=== PATIENT | male | born 1960 | race Hispanic/Latino ===

== ENCOUNTER 2020-12-13 08:35 | Day surgery (SDC) | payer OTHER ==
[2020-11-24 11:00] LABS: INR 1.01 (0.85-1.15)
[2020-11-24 11:02] LABS: PARTIAL THROMBOPLASTIN TIME 29.1 SEC (26.3-35.5)
[~2020-12-13 08:35] MED LIST: ISOVUE-M 200 20 ML VIAL IT ONE
[2020-12-13] MEDS ORDERED: ISOVUE-M 200 20 ML VIAL IT ONE (08:44)
== END 2020-12-13 12:30 | disposition home or self-care (01) ==
LOC: DAH 08:35
PROVIDERS: ATTEND Family Medicine
DX: M54.16 Radiculopathy, lumbar region (principal); M48.061 Spinal stenosis, lumbar region without neurogenic claudication; M43.16 Spondylolisthesis, lumbar region; G47.33 Obstructive sleep apnea (adult) (pediatric); M79.7 Fibromyalgia; I10 Essential (primary) hypertension; E78.5 Hyperlipidemia, unspecified; K21.9 Gastro-esophageal reflux disease without esophagitis; F41.9 Anxiety disorder, unspecified; F33.9 Major depressive disorder, recurrent, unspecified; Z79.01 Long term (current) use of anticoagulants
CPT/HCPCS: 36415; 62304; 72132; 85610; 85730; Q9966

== ENCOUNTER 2021-07-25 06:07 | Day surgery (SDC) | payer OTHER ==
[2021-07-24 11:03] LABS: BASOPHILS % (AUTO) 0.3 % (0.0-5.0); HEMATOCRIT 41.1 % (42-54); LYMPHOCYTES % (AUTO) 38.8 % (21.0-51.0); MEAN CORPUSCULAR HEMOGLOBIN 30.4 pg (27.0-33.0); MEAN CORPUSCULAR HGB CONC 34.1 g/dL (32.0-36.0); MEAN CORPUSCULAR VOLUME 89.2 fL (79-99); MONOCYTES % (AUTO) 9.7 % (3.0-13.0); PLATELET COUNT (AUTO) 212 K/uL (130-400); RED BLOOD CELL COUNT(AUTO) 4.61 MIL/uL (4.50-6.20); RED CELL DISTRIBUTION WIDTH 12.6 % (11.0-15.5); WHITE BLOOD COUNT (AUTO) 6.1 K/uL (4.8-10.8)
[2021-07-24 11:09] LABS: CREATININE 0.9 mg/dL (0.5-1.5); POTASSIUM 4.2 mmol/L (3.5-5.1)
[2021-07-24 11:49] VITALS: BP 187/92
[2021-07-25] VITALS (17 sets, daily range): BP systolic 111–141; BP diastolic 53–90
[~2021-07-25] VITALS: Ht 172.7 cm; Wt 94.5 kg
[2021-07-25] MEDS: CEFAZOLIN SODIUM 1 GM VIAL IVP SCH ×2 (06:00→08:32)
[~2021-07-25 06:07] MED LIST changes: -ISOVUE-M 200 20 ML VIAL IT ONE; +LISI20TA24 PO; +OMEG-148 PO; +TRAMADOL PO
[2021-07-25] MEDS ORDERED: LACTATED RINGERS 1000ML 1,000 ML IV ONE (07:03)
[2021-07-25] MEDS ORDERED: FENTANYL CITRATE PF 50 MCG/1 ML 2ML VIAL ONE (08:17)
[2021-07-25] MEDS ORDERED: MIDAZOLAM HCL 1 MG/ML 2ML VIAL ONE (08:17)
[2021-07-25] MEDS ORDERED: GLYCOPYRROLATE 1 MG/5 ML SYRINGE ONE (08:17)
[2021-07-25] MEDS ORDERED: ONDANSETRON 4MG INJ ONE (08:17)
[2021-07-25] MEDS ORDERED: SUCCINYLCHOLINE CHLORIDE 20 MG/ML 10 ML VIAL ONE (08:17)
[2021-07-25] MEDS ORDERED: LIDOCAINE PF 100MG/5ML (2%) SYRINGE 5ML ONE (08:17)
[2021-07-25] MEDS ORDERED: ROCURONIUM 10MG/1ML SYR 10 MG/ML ML ONE (08:17)
[2021-07-25] MEDS ORDERED: NEOSTIGMINE 5MG/5ML SYR IV ONE (08:17)
[2021-07-25] MEDS ORDERED: PROPOFOL 10 MG/ML 20ML VIAL IV ONE (08:17)
[2021-07-25] MEDS ORDERED: DEXAMETHASONE SOD PHOSPHATE 10MG/ML 1ML VIAL ONE (08:17)
[2021-07-25] MEDS ORDERED: PHENYLEPHRINE HCL 10 MG/ML 1ML VIAL IV ONE (08:50)
[2021-07-25] MEDS ORDERED: MEPERIDINE-PF 25 MG/ML SYG ONE ×2 (09:01→09:58)
[2021-07-25] MEDS ORDERED: CEPH500B PO (09:30)
[2021-07-25] MEDS ORDERED: ACET1TAB25 PO (09:30)
[2021-07-25] MEDS ORDERED: KETOROLAC 30MG VIAL (30MG/ML) ONE (09:59)
== END 2021-07-25 11:00 | disposition home or self-care (01) ==
LOC: DAH 06:07
PROVIDERS: ATTEND Orthopaedic Surgery
DX: M23.321 Other meniscus derangements, posterior horn of medial meniscus, right knee (principal); Z20.822 Contact with and (suspected) exposure to COVID-19; M94.261 Chondromalacia, right knee; G47.33 Obstructive sleep apnea (adult) (pediatric); M79.7 Fibromyalgia; I10 Essential (primary) hypertension; E78.5 Hyperlipidemia, unspecified; K21.9 Gastro-esophageal reflux disease without esophagitis; F41.9 Anxiety disorder, unspecified; F32.9 Major depressive disorder, single episode, unspecified; Z79.01 Long term (current) use of anticoagulants
CPT/HCPCS: 29881; 36415; 80048; 85025; 87635; A4213; A4215; A4221; A4222; A4223; A4649; A4663; A4930; A5120; A6223; C9803; J0330; J0690; J1100; J1885; J2001; J2175 ×2; J2250; J2370; J2405; J2704; J2710; J3010; J3490; J7120

== ENCOUNTER 2024-03-17 05:36 | Observation (INO) | payer OTHER ==
[2024-03-11 13:06] LABS: BASOPHILS # (AUTO) 0.03 K/uL (0.00-0.20); BASOPHILS % (AUTO) 0.5 % (0.0-5.0); EOSINOPHILS # (AUTO) 0.12 K/uL (0.00-0.70); EOSINOPHILS % (AUTO) 2.2 % (0.0-8.0); HEMATOCRIT 44.6 % (42-54); IMMATURE GRANULOCYTE ABSOLUTE 0.01 K/uL (0-1); LYMPHOCYTES # (AUTO) 1.8 K/uL (1.0-4.8); LYMPHOCYTES % (AUTO) 32.7 % (21.0-51.0); MEAN CORPUSCULAR HEMOGLOBIN 30.7 pg (27.0-33.0); MEAN CORPUSCULAR HGB CONC 34.3 g/dL (32.0-36.0); MEAN CORPUSCULAR VOLUME 89.4 fL (79-99); MONOCYTES # (AUTO) 0.4 K/uL (0.1-1.0); MONOCYTES % (AUTO) 7.8 % (3.0-13.0); NEUTROPHILS # (AUTO) 3.1 K/uL (1.8-7.7); NEUTROPHILS % (AUTO) 56.6 % (40.0-77.0); PLATELET COUNT (AUTO) 233 K/uL (130-400); RED BLOOD CELL COUNT(AUTO) 4.99 MIL/uL (4.50-6.20); RED CELL DISTRIBUTION WIDTH 12.6 % (11.0-15.5); WHITE BLOOD COUNT (AUTO) 5.5 K/uL (4.8-10.8)
[2024-03-11 13:24] LABS: APPEARANCE,URINE CLEAR (CLEAR); BILIRUBIN,URINE NEGATIVE (NEGATIVE); COLOR,URINE LIGHT-YELLOW (YELLOW); GLUCOSE, URINE (UA) NEGATIVE (NEGATIVE); KETONES,URINE NEGATIVE (NEGATIVE); LEUKOCYTE ESTERASE ,URINE NEGATIVE Leu/uL (NEGATIVE); NITRATE,URINE NEGATIVE (NEGATIVE); OCCULT BLOOD,URINE NEGATIVE (NEGATIVE); PH,URINE 5.5 (5.0-8.0); PROTEIN,URINE NEGATIVE (NEGATIVE); UROBILINOGEN,URINE 0.2 mg/dL (0.2-1.0)
[2024-03-11 13:25] LABS: ADD UA MICROSCOPIC NO
[2024-03-11 13:26] VITALS: BP 178/89; PULSE 62; RESP 18; TEMP 98.5
[~2024-03-17] VITALS: Ht 172.7 cm; Wt 98.4 kg
[2024-03-17] VITALS (29 sets, daily range): BP systolic 110–163; BP diastolic 58–92; PULSE 64–98; RESP 10–19; TEMP 97.4–98.9; O2SAT 93–96
[~2024-03-17 05:36] MED LIST changes: +LISI10TA24 PO; -LISI20TA24 PO; +MELO-108 PO; +MULTIVITAMIN PO; -OMEG-148 PO; +VITAMIN B12 PO
[2024-03-17] MEDS: ceFAZolin SODIUM 2 GM VIAL ONE (06:23)
[2024-03-17] MEDS: LACTATED RINGERS 1000ML 1,000 ML IV ONE (06:40)
[2024-03-17] MEDS ORDERED: SUCCINYLCHOLINE CHLORIDE 20 MG/ML 10 ML VIAL ONE (06:58)
[2024-03-17] MEDS ORDERED: LIDOCAINE PF 100MG/5ML (2%) SYRINGE 5ML ONE ×2 (06:58→07:00)
[2024-03-17] MEDS ORDERED: MIDAZOLAM HCL 1 MG/ML 2ML VIAL ONE (06:59)
[2024-03-17] MEDS ORDERED: NEOSTIGMINE METHYLSULFATE 1MG/ML IV ONE (06:59)
[2024-03-17] MEDS ORDERED: rocuRONium bROMide 10MG/1ML 5ML VL ONE ×2 (06:59→08:36)
[2024-03-17] MEDS ORDERED: proPOFol 10 MG/ML 20ML VIAL IV ONE (06:59)
[2024-03-17] MEDS ORDERED: GLYCOPYRROLATE 0.2 MG/ML 5 ML VIAL ONE (06:59)
[2024-03-17] MEDS ORDERED: dexaMETHasone SOD PHOSPHATE 10MG/ML 1ML VIAL ONE (06:59)
[2024-03-17] MEDS ORDERED: ondanSETRON 4MG INJ ONE (06:59)
[2024-03-17] MEDS ORDERED: FENTanyl CITRate PF 50 MCG/1 ML 2ML VIAL ONE ×2 (07:00→08:53)
[2024-03-17] MEDS ORDERED: ROPivacaine 0.5% 5MG/ML 30ML ONE (07:06)
[2024-03-17] MEDS: ceFAZolin SODIUM 2 GM VIAL IVPB ONE (07:45)
[2024-03-17] MEDS ORDERED: ePHEDrine SULFate 50 MG/ML AMPULE ONE (07:56)
[2024-03-17] MEDS ORDERED: phenylEPHRINE HCL 10 MG/ML 1ML VIAL IV ONE (07:57)
[2024-03-17] MEDS ORDERED: CALCIUM CARB 500MG PO PRN (08:00)
[2024-03-17] MEDS ORDERED: FERROUS FUMARATE 324 MG TABLET PO PRN (08:00)
[2024-03-17] MEDS ORDERED: PoTASSium chl 10% ELIXIR 20MEQ 20 MEQ/15 ML UDCUP PO PRN (08:00)
[2024-03-17] MEDS ORDERED: HYDROcodone/APAP 5/325 1 TAB TABLET PO PRN (08:00)
[2024-03-17] MEDS ORDERED: PoTASSium chloRIDE 20MEQ/100ML 100 ML IV PRN (08:00)
[2024-03-17] MEDS: ketOROlac 15MG/ML VIAL (15MG/ML) IV SCH (08:00)
[2024-03-17] MEDS ORDERED: ondanSETRON 4MG INJ IVP PRN (08:00)
[2024-03-17] MEDS ORDERED: TRANEXAMIC ACID 1000MG/10ML ONE ×2 (08:09→10:31)
[2024-03-17] MEDS ORDERED: CYANOCOBALAMIN (VITAMIN B-12) 1,000 MCG TABLET PO SCH (08:30)
[2024-03-17] MEDS: doCUSate SODIUM 100 MG CAP PO SCH (09:00)
[2024-03-17] MEDS: MULTIVITAMIN TABLET PO SCH (09:00)
[2024-03-17] MEDS: polyETHYLene GLYCol 3350 17 GM POWD.PACK PO SCH (09:00)
[2024-03-17] MEDS: LISINOPRIL 10 MG TABLET PO SCH (09:00)
[2024-03-17] MEDS: TRANEXAMIC ACID 1000MG/10ML IV ONE (10:33)
[2024-03-17] MEDS: ondanSETRON 4MG INJ ONE (11:37)
[2024-03-17] MEDS: acetaMINOPHEN 1,000 MG/100 ML VIAL IV ONE (11:37)
[2024-03-17] MEDS: MEPERIDINE-PF 25 MG/ML SYG ONE ×2 (11:38→12:02)
[2024-03-17] MEDS: ketOROlac 15MG/ML VIAL (15MG/ML) ONE (11:38)
[2024-03-17] MEDS ORDERED: ceFAZolin SODIUM 2 GM VIAL IVP SCH (13:00)
[2024-03-17] MEDS: HYDROcodone/APAP 5/325 1 TAB TABLET PO PRN (14:52)
[2024-03-17] MEDS: 0.9%NACL 1000ML 1,000 ML IV SCH (14:53)
[2024-03-17] MEDS: ceFAZolin SODIUM 2 GM VIAL IVP SCH (16:42)
[2024-03-17] MEDS: CYCLOBENZAPRINE HCL 10 MG TABLET PO PRN (20:53)
[2024-03-18] VITALS (8 sets, daily range): BP systolic 129–173; BP diastolic 73–93; PULSE 74–119; RESP 16–20; TEMP 98.1–99.2; O2SAT 93–95
[2024-03-18 04:34] LABS: HEMATOCRIT 32.1 % (42-54); MEAN CORPUSCULAR HEMOGLOBIN 30.7 pg (27.0-33.0); MEAN CORPUSCULAR HGB CONC 34.6 g/dL (32.0-36.0); MEAN CORPUSCULAR VOLUME 88.9 fL (79-99); RED BLOOD CELL COUNT(AUTO) 3.61 MIL/uL (4.50-6.20); RED CELL DISTRIBUTION WIDTH 12.3 % (11.0-15.5)
[2024-03-18 04:57] LABS: CREATININE 1.1 mg/dL (0.5-1.3); POTASSIUM 3.7 mmol/L (3.5-5.1)
[2024-03-18] MEDS: traMADol HCL 50 MG TABLET PO PRN (05:31)
[2024-03-18] MEDS: PoTASSium chloRIDE 20MEQ ER 20 MEQ ERTAB PO PRN (05:31)
[2024-03-18] MEDS: ASPIRIN 325MG EC TAB PO SCH (09:04)
[2024-03-19 03:35] VITALS: BP 153/83; PULSE 96; RESP 19; TEMP 97.6
[2024-03-19 07:59] VITALS: BP 135/67; PULSE 111; RESP 18; TEMP 98.5
[2024-03-19 08:45] VITALS: O2SAT 96
[2024-03-19] MEDS: HYDROcodone/APAP 5/325 1 TAB TABLET PO PRN (11:54)
[2024-03-19 11:55] VITALS: BP 165/78; PULSE 99; RESP 18; TEMP 98.2
[2024-03-19 16:00] VITALS: BP 162/93; PULSE 99; RESP 18; TEMP 98.6
[2024-03-19] MEDS ORDERED: ASPI-891 PO (17:33)
[2024-03-19] MEDS ORDERED: DOCU-116 PO (17:33)
[2024-03-19] MEDS ORDERED: HYDR-4060 PO (17:33)
[2024-03-19] MEDS ORDERED: CYCL-309 PO (17:33)
[2024-03-20] MEDS ORDERED: BisaCODYL 10 MG SUPP.RECT RC PRN (08:00)
== END 2024-03-19 18:45 | disposition home health service (06) ==
LOC: DAH 05:36 → DAHIP 05:37 → 4BH 12:40
PROVIDERS: ADMIT Student in an Organized Health Care Education/Training Program; ATTEND Student in an Organized Health Care Education/Training Program
DX: M16.11 Unilateral primary osteoarthritis, right hip (principal); G89.18 Other acute postprocedural pain; D62 Acute posthemorrhagic anemia; R26.9 Unspecified abnormalities of gait and mobility; N40.0 Benign prostatic hyperplasia without lower urinary tract symptoms; E78.5 Hyperlipidemia, unspecified; I10 Essential (primary) hypertension; K21.9 Gastro-esophageal reflux disease without esophagitis; Z98.1 Arthrodesis status; Z79.899 Other long term (current) drug therapy
CPT/HCPCS: 82040; 85025; 87086; 84134; 86140; 81003; 36415 ×2; 93005; 87641; 64447; 27130; 96376; 96365; 96366; 96375; 73503; 73521; 97161; 97530 ×9; 80048; 85027; 97116 ×4; G0378 ×50; A4663; J7120 ×2; J3010 ×2; J3490 ×8; J1100; J0330; J2003 ×2; J2250; J2704; J2405 ×2; J2710; J2175 ×2; J2795; J1885 ×3; J2371; J0690 ×4; A4649 ×2; A6255; A5120; A4215; A4223 ×2; A4222; A4221; A4216; J7030; C1776

== ENCOUNTER → 2025-03-07 | Outpatient (CLI) | payer OTHER ==
[~2025-03-07] MED LIST changes: +ASPI-891 PO; +CYCL-309 PO; +DOCU-116 PO; +HYDR-4060 PO; -TRAMADOL PO
--- NOTE | 2025-03-10 15:27 | HMCIMG ---
EXAM: CT Pelvis without IV contrast CLINICAL HISTORY: Pain in right hip, METAL SUPRESSION TECHNIQUE: Axial computed tomography images of the pelvis without intravenous contrast. CONTRAST: without intravenous contrast. COMPARISON: None provided. FINDINGS: PERITONEUM: No free fluid. No free air. LYMPH NODES: No lymphadenopathy is evident. REPRODUCTIVE: The prostate measures approximately 106 cc, suggestive of grade III prostatomegaly. The urinary bladder is distended with thick irregular wall possibility of changes of cystitis VASCULATURE: No evidence of abdominal aortic aneurysm. BONES: Metallic implant is in the right hip joint without any evidence of radiolucency or any signs suggestive of underlying infective etiology. Mild periarticular soft tissue edematous changes.No aggressive appearing osseous lesion. No acute osseous pathology is evident. IMPRESSION: 1. Grade III prostatomegaly, with prostate measuring approximately 106 cc. 2. Distended urinary bladder with thick irregular wall, possibly representing cystitis. 3. Right hip metallic implant without evidence of radiolucency or signs of infection. Mild periarticular soft tissue edema noted. /Lenore
== END | disposition home or self-care (01) ==
LOC: RAH 11:14
PROVIDERS: ATTEND Student in an Organized Health Care Education/Training Program
DX: M25.551 Pain in right hip (principal); N40.0 Benign prostatic hyperplasia without lower urinary tract symptoms; N32.89 Other specified disorders of bladder; R60.1 Generalized edema
CPT/HCPCS: 73700